=== PATIENT | female | born 1995 | race Caucasian/White ===

== ENCOUNTER 2018-09-12 21:55 | Emergency (ER) | payer OTHER ==
[~2018-09-12] VITALS: Ht 162.6 cm; Wt 56.7 kg
--- NOTE | 2018-09-12 22:12 | NUR ---
ED Nurse Note: Pt walked in Er and c/o R hip pain due to fall on wet floor 2 hours ago. Pt is AO x 4times, VSS, on room air no distress. Pain level 8/10. CHIRAGD seen pt at bedside.
[2018-09-12] MEDS ORDERED: Methocarbamol 750mg tab ORAL ONE (22:30)
--- NOTE | 2018-09-12 22:53 | NUR ---
ED Nurse Note: Urine sample collected and sent to Lab.
[2018-09-12] MEDS ORDERED: ROBAXIN-750750 MG PO (23:49)
[2018-09-12] MEDS ORDERED: IBUPROFEN600 MG ORAL (23:49)
[2018-09-13 00:01] VITALS: BP 118/76
--- NOTE | 2018-09-13 00:03 | NUR ---
ED Nurse Note: Pt cleared DC by GENA. Pt is AO x 4times, VSS, on room air no distress. ID band removed. DC and meds instructions given to Pt, Pt understood well. Provide cruthes and education for Pt and Pt understood well how to use it. Pt walked out with cruthes with boyfriend. Boyfriend will drive home.
--- NOTE | 2018-09-13 01:51 | Emergency Room Report ---
History of Present Illness General Chief Complaint: Lower Extremity Injury Source: Patient Present Illness HPI Patient presents with complaints of right hip pain radiating to the lower leg this happened after slipping and falling on the ground She reports that she feels the ground was wet causing the patient to slip Patient points to the right hip also to the upper leg knee and anterior tibial area for the discomfort Denies any loss of consciousness denies any chest pain denies any neck pain or photophobia Pain is 7 out of 10 patient has difficulty standing and bearing weight Allergies: Coded Allergies: No Known Allergies (Unverified , 09/12/18) Patient History Past Medical History: see triage record Pertinent Family History: none Last Menstrual Period: IRREGULAR Now: No - IUD Reviewed Nursing Documentation: PMH: Agreed; PSxH: Agreed Nursing Documentation-PMH Past Medical History: No Stated History Review of Systems All Other Systems: negative except mentioned in HPI Physical Exam Vital Signs Date Time Temp Pulse Resp B/P (MAP) Pulse Ox O2 Delivery O2 Flow Rate FiO2 09/12/18 22:03 98.2 84 18 123/74 100 Room Air Sp02 EP Interpretation: reviewed, normal General Appearance: well appearing, no apparent distress Head: normocephalic, atraumatic Eyes: bilateral eye PERRL, bilateral eye EOMI ENT: hearing grossly normal, normal pharynx Neck: supple Respiratory: lungs clear, no retraction, no accessory muscle use Cardiovascular #1: regular rate, rhythm Gastrointestinal: non tender, soft Musculoskeletal: other - Discomfort on palpation of the right hip, patient has pain trying to flex at the knee on the upper quadriceps, sensory intact no ecchymosis or bruising Neurologic: alert, oriented x3 Skin: normal color, no rash Lymphatic: no adenopathy Medical Decision Making Diagnostic Impression: Primary Impression: contusion Additional Impression: muscle strain ER Course Multiple differentials entertained given the fall and the type of trauma likely musculoskeletal sprain/strain however given the discomfort x-ray imaging was obtained there is no obvious acute fracture Patient provided with pain medication here given the difficulty bearing weight and ambulating was provided with crutches And is stable for initial conservative outpatient trial Other X-Ray Diagnostic Results Other X-Ray Diagnostic Results : X-Ray ordered: Right hip # of Views/Limited Vs Complete: 3 View Indication: Pain EP Interpretation: Yes Interpretation: no dislocation, no soft tissue swelling, no fractures Impression: No acute disease Electronically Signed by: Rohan Brooks DO Last Vital Signs Date Time Temp Pulse Resp B/P (MAP) Pulse Ox O2 Delivery O2 Flow Rate FiO2 09/13/18 00:01 98.1 72 18 118/76 100 Room Air Status: improved Disposition: HOME, SELF-CARE Condition: Improved Scripts Methocarbamol* (ROBAXIN-750*) 750 Mg Tablet 750 MG PO TID, #21 TAB 0 Refills Prov: Rohan Brooks DO 09/12/18 Ibuprofen* (MOTRIN*) 600 Mg Tablet 600 MG ORAL Q8H PRN for For Pain, #20 TAB 0 Refills Prov: Rohan Brooks DO 09/12/18 Referrals: [facility],REFERRING (PCP) Patient Instructions: Muscle Strain, [id number], Contusion, [id number] Additional Instructions: Patient is provided with the discharge instructions notified to follow up with primary doctor in the next 2-3 days otherwise return to the er with any worsening symptoms. Please note that this report is being documented using [employer] technology. This can lead to erroneous entry secondary to incorrect interpretation by the dictating instrument. Rohan Brooks DO Sep 13, 2018 01:51
== END 2018-09-13 00:08 | disposition home or self-care (01) ==
LOC: EMR 22:27
DX: S70.01XA Contusion of right hip, initial encounter (principal); S76.011A Strain of muscle, fascia and tendon of right hip, initial encounter; Y92.009 Unspecified place in unspecified non-institutional (private) residence as the place of occurrence of the external cause; W01.0XXA Fall on same level from slipping, tripping and stumbling without subsequent striking against object, initial encounter
CPT/HCPCS: 81025; 99283

== ENCOUNTER 2018-09-16 11:32 | Emergency (ER) | payer OTHER ==
[~2018-09-16] VITALS: Ht 162.6 cm; Wt 56.7 kg
[~2018-09-16 11:32] MED LIST: IBUPROFEN600 MG ORAL; ROBAXIN-750750 MG PO
[2018-09-16] MEDS ORDERED: NEURONTIN300 MG ORAL (11:38)
[2018-09-16] MEDS ORDERED: LAMICTAL200 MG ORAL (11:38)
[2018-09-16] MEDS ORDERED: IBUPROFEN600 MG ORAL (11:38)
--- NOTE | 2018-09-16 11:40 | NUR ---
ED Nurse Note: patient walked into ED from home c/o ambulated in to ER from home due to pink left eye since this morning.
[2018-09-16] MEDS ORDERED: LAMICTAL150 MG ORAL (11:48)
[2018-09-16] MEDS ORDERED: GENTAK5 ML LEFT EYE (11:48)
--- NOTE | 2018-09-16 11:54 | NUR ---
ED Nurse Note: pt was cleared for discharge by ERMD, discharge instrcution/paper/prescription explained and patient verbalized understanding. ID band removed. pt aox4. pt able to walk with steady gait. pt left the ed with all belongings.
[2018-09-16 11:55] VITALS: BP 117/70
[2018-09-16 11:57] VITALS: BP 117/70
--- NOTE | 2018-09-16 16:49 | Emergency Room Report ---
History of Present Illness General Chief Complaint: Eye Problems Source: Patient Present Illness HPI Patient presents emergency department today complaining of left eye redness. Patient states that she has discharge in her left eye. She denies any pain fever runny nose cough or visual changes. She denies any chest pain shortness of breath. Symptoms noted to be mild/moderate. Patient also complains of having history of bipolar disorder states that she is out of her left Lacmictal and is requesting a refill. She denies any suicidal homicidal ideation no auditory or visual hallucinations.No other modifying factors. No other associated signs and symptoms. No other complaints were noted. Allergies: Coded Allergies: No Known Allergies (Unverified , 09/16/18) Patient History Past Medical History: psych hx Past Surgical History: none Pertinent Family History: none Social History: Denies: smoking, alcohol use, drug use Last Menstrual Period: Aug 2018 Reviewed Nursing Documentation: PMH: Agreed; PSxH: Agreed Nursing Documentation-PMH Past Medical History: No Stated History Review of Systems All Other Systems: negative except mentioned in HPI Physical Exam Vital Signs Date Time Temp Pulse Resp B/P (MAP) Pulse Ox O2 Delivery O2 Flow Rate FiO2 09/16/18 11:35 98.6 100 16 117/70 97 Room Air Sp02 EP Interpretation: reviewed, normal General Appearance: normal inspection, well appearing, no apparent distress, alert Head: atraumatic Eyes: left eye Scleral Injection; bilateral eye PERRL, bilateral eye fluoroscene uptake, bilateral eye visual acuity ENT: normal ENT inspection, hearing grossly normal, normal voice Neck: normal inspection, full range of motion, supple, no bony tend Respiratory: normal inspection, lungs clear, normal breath sounds, no respiratory distress, no retraction, no wheezing Cardiovascular #1: regular rate, rhythm, no edema Gastrointestinal: normal inspection, normal bowel sounds, non tender, soft, no guarding, no hernia Genitourinary: no CVA tenderness Musculoskeletal: normal inspection, back normal, normal range of motion Neurologic: normal inspection, alert, responsive, speech normal Psychiatric: normal inspection, judgement/insight normal, mood/affect normal Skin: normal inspection, normal color, no rash Medical Decision Making Diagnostic Impression: Primary Impression: Medication refill Additional Impression: Conjunctivitis ER Course Patient presents emergency department today complaining of injected left eye. Differential considerations include glaucoma, conjunctivitis, foreign body. Patient's exam consistent with conjunctivitis. In addition patient requires medication refill we'll give patient a medication refill. Recommend close outpatient follow-up.Patient is advised to follow up with primary doctor in 2-3 days and return the emergency room for any worsening symptoms and as needed. Patient will be given eyedrops antibiotics in the left eye. Last Vital Signs Date Time Temp Pulse Resp B/P (MAP) Pulse Ox O2 Delivery O2 Flow Rate FiO2 09/16/18 11:57 98.6 100 16 117/70 97 Room Air Status: unchanged Disposition: HOME, SELF-CARE Condition: Stable Scripts Lamotrigine* (LAMICTAL*) 150 Mg Tablet 150 MG ORAL TWICE A DAY, #60 TAB 0 Refills Prov: Stephen Harmon MD 09/16/18 Gentamicin Sulfate* (GENTAK*) 5 Ml Drops 1 DROP LEFT EYE Q4H for 7 Days, #1 DROP 0 Refills Prov: Stephen Harmon MD 09/16/18 Referrals: [facility],REFERRING (PCP) [facility] Patient Instructions: Bacterial Conjunctivitis, [id number]-vs-[id number] Stephen Harmon MD Sep 16, 2018 16:49
== END 2018-09-16 11:54 | disposition home or self-care (01) ==
LOC: EMR 11:45
DX: Z76.0 Encounter for issue of repeat prescription (principal); F31.9 Bipolar disorder, unspecified; H10.9 Unspecified conjunctivitis
CPT/HCPCS: 99282

== ENCOUNTER 2018-10-09 19:33 | Emergency (ER) | payer OTHER ==
[~2018-10-09] VITALS: Ht 162.6 cm; Wt 65.8 kg
[~2018-10-09 19:33] MED LIST changes: +GENTAK5 ML LEFT EYE; +LAMICTAL150 MG ORAL; +LAMICTAL200 MG ORAL; +NEURONTIN300 MG ORAL
--- NOTE | 2018-10-09 20:06 | NUR ---
Patient has flu like symptoms since saturday. Patient reports general pain 02/25.
[2018-10-09 20:07] VITALS: BP 109/65
--- NOTE | 2018-10-09 20:08 | Emergency Room Report ---
History of Present Illness General Chief Complaint: Flu Like Symptoms Source: Patient Present Illness HPI 23-year-old female presents to the emergency department complaining of 10 out of 10 in severity bodyaches, chills, fevers, sore throat, nasal congestion and increased fatigue 2 days. Patient reports rather sudden onset of her symptoms all at once. Patient denies abdominal pain/abdominal tenderness, nausea/ vomiting, neck pain/stiffness, sudden severe headache or photophobia. She states that she has never received a flu vaccination. She denies ill contacts with similar symptoms she denies recent travel and denies shortness of breath. Denies ear pain. Denies Cp, Palpitations, LOC, AMS, seizures, paresthesias, or changes in Hearing or vision. Denies hx of smoking, asthma or COPD. Allergies: Coded Allergies: No Known Allergies (Unverified , 09/16/18) Patient History Past Medical History: see triage record Past Surgical History: none Pertinent Family History: none Last Menstrual Period: Sep 21 2018 Now: No Reviewed Nursing Documentation: PMH: Agreed; PSxH: Agreed Nursing Documentation-PMH Past Medical History: No Stated History Review of Systems All Other Systems: negative except mentioned in HPI Physical Exam Vital Signs Date Time Temp Pulse Resp B/P (MAP) Pulse Ox O2 Delivery O2 Flow Rate FiO2 10/09/18 19:49 99.5 110 20 109/65 97 Room Air Sp02 EP Interpretation: reviewed, normal General Appearance: no apparent distress, alert, GCS 15, non-toxic, lethargic Head: normocephalic, atraumatic Eyes: bilateral eye normal inspection, bilateral eye PERRL ENT: hearing grossly normal, normal voice, TMs + canals normal, uvula midline, moist mucus membranes, nasal congestion, pharyngeal erythema Neck: full range of motion, no meningismus Respiratory: chest non-tender, lungs clear, normal breath sounds, no respiratory distress, no wheezing, speaking full sentences Cardiovascular #1: regular rate, rhythm Musculoskeletal: back normal, gait/station normal, normal range of motion, non- tender Neurologic: alert, oriented x3, responsive, motor strength/tone normal, sensory intact, speech normal, grossly normal Psychiatric: judgement/insight normal Skin: normal color, no rash, warm/dry, well hydrated Lymphatic: no adenopathy Medical Decision Making PA Attestation Dr. Massey is my supervising Physician whom patient management has been discussed with. Diagnostic Impression: Primary Impression: Acute viral syndrome ER Course 23-year-old female presents to the emergency department complaining of 10 out of 10 in severity bodyaches, chills, fevers, sore throat, nasal congestion and increased fatigue 2 days. Patient reports rather sudden onset of her symptoms all at once. Patient denies abdominal pain/abdominal tenderness, nausea/ vomiting, neck pain/stiffness, sudden severe headache or photophobia. She states that she has never received a flu vaccination. She denies ill contacts with similar symptoms she denies recent travel and denies shortness of breath. Denies ear pain. Denies Cp, Palpitations, LOC, AMS, seizures, paresthesias, or changes in Hearing or vision. Denies hx of smoking, asthma or COPD. Ddx considered but are not limited to URI, pneumonia, PE, strep pharyngitis, meningitis, influenza, OM/OE just to name a few. Vital signs: Pt. is afebrile, the remaining VS are WNL H&PE are most consistent with Viral Syndrome suspicious for Influenza will treat clinically - no meningeal signs, Lungs are clear and oropharynx is not involved, no evidence of bacterial infection at this time. ORDERS: none required at this time, the diagnosis is clinical ED INTERVENTIONS: None required at this time. --PT. EDUCATION: --I discussed with this patient that I will be prescribing Tamiflu which is an antiviral. This medication is not always covered by insurance and is not always available at pharmacies. I educated patient that this medication has been shown to reduce symptoms by 1 day, and if unable to obtain there is no alternative, and to continue conservative treatment. DISCHARGE: At this time pt. is stable for d/c to home. Will provide printed patient care instructions, and any necessary prescriptions. Care plan and follow up instructions have been discussed with the patient prior to discharge. Last Vital Signs Date Time Temp Pulse Resp B/P (MAP) Pulse Ox O2 Delivery O2 Flow Rate FiO2 10/09/18 19:49 99.5 110 20 109/65 97 Room Air Disposition: HOME, SELF-CARE Condition: Stable Scripts D-Methorphan Hb/Prometh Hcl* (PROMETHAZINE-DM SYRUP*) 118 Ml Syrup 5 ML ORAL Q6H PRN for For Cough, #120 ML 0 Refills Prov: Sasha Perdomo 10/09/18 Naproxen* (NAPROXEN*) 500 Mg Tablet.dr 500 MG ORAL TWICE A DAY for 10 Days, #20 TAB Prov: Sasha Perdomo 10/09/18 Acetaminophen* (TYLENOL EXTRA STRENGTH*) 500 Mg Tablet 500 MG ORAL Q6H PRN for Mild Pain/Temp > 100.5, #30 TAB 0 Refills Prov: Sasha Perdomo 10/09/18 Oseltamivir Phosphate (Tamiflu) 75 Mg Capsule 75 MG ORAL TWICE A DAY for 5 Days, #10 CAP Prov: Sasha Perdomo 10/09/18 Patient Instructions: Influenza, Adult, [id number] Additional Instructions: Take medications as directed. Follow up with a Primary Care Provider in 3-5 days, even if your symptoms have resolved. --Please review list of primary care clinics, if you do not already have a primary care provider Return sooner to ED if new symptoms occur, or current symptoms become worse. Do not drink alcohol, drive, or operate heavy machinery while taking Cough Syrup as this may cause drowsiness. - Please note that this Emergency Department Report was dictated using [employer] drilling engineer technology software, occasionally this can lead to erroneous entry secondary to interpretation by the dictation equipment. Sasha Perdomo Oct 09, 2018 20:08
--- NOTE | 2018-10-09 20:11 | NUR ---
ED Nurse Note: Patient tolerated medication well.
[2018-10-09] MEDS ORDERED: NAPROXEN500 M1 ORAL (20:12)
[2018-10-09] MEDS ORDERED: TAMIFLU75 MG ORAL (20:12)
[2018-10-09] MEDS ORDERED: TYLENOL EXTRA500 MG ORAL (20:12)
[2018-10-09] MEDS ORDERED: PROMETHAZINE-C118 M1 ORAL (20:12)
[2018-10-09] MEDS ORDERED: Oseltamivir 75mg cap ORAL ONE (20:15)
[2018-10-09] MEDS ORDERED: PROMETHAZINE-D118 ML ORAL (20:16)
[2018-10-09 20:36] VITALS: BP 109/65
--- NOTE | 2018-10-09 20:36 | NUR ---
ED Nurse Note: Patient discharged in stable condition, Verbalized understanding of discharge instructions, ID band removed. Departed with all belongings.
== END 2018-10-09 20:36 | disposition home or self-care (01) ==
LOC: EMR 20:05
DX: J11.1 Influenza due to unidentified influenza virus with other respiratory manifestations (principal)
CPT/HCPCS: 99282

== ENCOUNTER 2018-10-13 00:09 | Emergency (ER) | payer OTHER ==
[~2018-10-13] VITALS: Ht 162.6 cm; Wt 52.2 kg
[~2018-10-13 00:09] MED LIST changes: +NAPROXEN500 M1 ORAL; +PROMETHAZINE-C118 M1 ORAL; +PROMETHAZINE-D118 ML ORAL; +TAMIFLU75 MG ORAL; +TYLENOL EXTRA500 MG ORAL
[2018-10-13] MEDS ORDERED: BUPROPION XL300 MG ORAL (00:21)
[2018-10-13 00:30] VITALS: BP 113/72
--- NOTE | 2018-10-13 00:30 | NUR ---
ED Nurse Note: Received report. Pt from home, ambulatory, AAOx4, c/o bilateral flank pain 9/10 for a week. Pt denies n/v and diarrhea. Will carry out ER MD's orders and monitor.
--- NOTE | 2018-10-13 00:36 | Emergency Room Report ---
History of Present Illness General Chief Complaint: Abdominal Pain Source: Patient Present Illness HPI Is a 23-year-old female with no past medical history. She presents with chief complaint of right flank pain/kidney pain. Onset for about a week. She had some urinary frequency earlier and took [id number] medication for it. Now denies any dysuria or frequency. Pain is 9 out of 10. Worse with movement. No nausea no vomiting. No diarrhea. Denies any other complaint. Allergies: Coded Allergies: No Known Allergies (Unverified , 09/16/18) Patient History Past Medical History: see triage record, old chart reviewed Past Surgical History: other Pertinent Family History: none Social History: Reports: smoking Last Menstrual Period: sep 20, 2018 Now: No : 2 Para: 0 Immunizations: other Reviewed Nursing Documentation: PMH: Agreed; PSxH: Agreed Nursing Documentation-PMH Past Medical History: No Stated History History Of Psychiatric Problem: Yes - bipolar anxiety depression Review of Systems Eye: Denies: eye pain, blurred vision ENT: Denies: ear pain, nose congestion, throat swelling Respiratory: Denies: cough, shortness of breath Cardiovascular: Denies: chest pain, palpitations Gastrointestinal: Reports: abdominal pain; Denies: diarrhea, nausea, vomiting Musculoskeletal: Denies: back pain, joint pain Skin: Denies: rash Neurological: Denies: headache, numbness Endocrine: Denies: increased thirst, increased urine Hematologic/Lymphatic: Denies: easy bruising All Other Systems: negative except mentioned in HPI Physical Exam Vital Signs Date Time Temp Pulse Resp B/P (MAP) Pulse Ox O2 Delivery O2 Flow Rate FiO2 10/13/18 00:14 98.6 110 16 106/72 100 Room Air vitals with tachycardia Sp02 EP Interpretation: reviewed, normal General Appearance: well appearing, no apparent distress, alert Head: normocephalic, atraumatic Eyes: bilateral eye PERRL, bilateral eye EOMI ENT: hearing grossly normal, normal pharynx Neck: full range of motion, supple, no meningismus Respiratory: chest non-tender, lungs clear, normal breath sounds Cardiovascular #1: regular rate, rhythm, no murmur Gastrointestinal: normal bowel sounds, non tender, no mass, no organomegaly, no bruit, non-distended Genitourinary: CVA tenderness (R) Musculoskeletal: back normal, gait/station normal, normal range of motion Psychiatric: mood/affect normal Skin: warm/dry Medical Decision Making Diagnostic Impression: Primary Impression: Pyelonephritis ER Course She presents with right flank pain. Labs unremarkable. CT scan is negative for any stone. No evidence of acute abdomen. Pain is resolved. We'll discharge home with antibiotics for pyelonephritis. Dose of IV antibiotics given here. Lab Results Impression labs unremarkable Last Vital Signs Date Time Temp Pulse Resp B/P (MAP) Pulse Ox O2 Delivery O2 Flow Rate FiO2 10/13/18 00:14 98.6 110 16 106/72 100 Room Air Status: improved Disposition: HOME, SELF-CARE Condition: Stable Scripts Ibuprofen* (MOTRIN*) 600 Mg Tablet 600 MG ORAL THREE TIMES A DAY, #30 TAB 0 Refills Prov: Jared Flores MD 10/13/18 Cephalexin* (KEFLEX*) 500 Mg Capsule 500 MG ORAL TID, #30 CAP Prov: Jared Flores MD 10/13/18 Additional Instructions: Increase fluids. Follow-up with your doctor in 2-3 days for recheck. Return if symptom worsen. Jared Flores MD Oct 13, 2018 00:36
[2018-10-13] MEDS ORDERED: Ketorolac 30mg Inj IV ONE (00:45)
[2018-10-13 01:10] LABS: APPEARANCE,URINE CLEAR; BILIRUBIN, URINE NEGATIVE (NEGATIVE); COLOR,URINE PALE YELLOW; GLUCOSE, URINE (UA) NEGATIVE (NEGATIVE); KETONES,URINE NEGATIVE (NEGATIVE); LEUKOCYTE ESTERASE ,URINE 2+ (NEGATIVE); NITRITE,URINE NEGATIVE (NEGATIVE); PH,URINE 8 (4.5-8.0); PROTEIN,URINE NEGATIVE (NEGATIVE); UROBILINOGEN,URINE NORMAL MG/DL (0.0-1.0)
[2018-10-13] MEDS ORDERED: Morphine Sulfate 4mg/ml Inj (IV USE ONLY) IVP ONE (01:30)
[2018-10-13 01:33] LABS: BASOPHILS % (AUTO) 0.7 % (0.0-2.0); EOSINOPHILS % (AUTO) 0.9 % (0.0-3.0); HEMATOCRIT 35.9 % (37.0-47.0); HEMOGLOBIN 12.3 G/DL (12.0-16.0); LYMPHOCYTES % (AUTO) 19.6 % (20.0-45.0); MEAN CORPUSCULAR VOLUME 87 FL (80-99); MONOCYTES % (AUTO) 9.9 % (1.0-10.0); NEUTROPHILS % (AUTO) 68.9 % (45.0-75.0); PLATELET COUNT 262 K/UL (150-450); RED BLOOD COUNT 4.12 M/UL (4.20-5.40); RED CELL DISTRIBUTION WIDTH 10.9 % (11.6-14.8)
[2018-10-13 01:35] LABS: ANION GAP 8 mmol/L (5-15); BLOOD UREA NITROGEN 8 mg/dL (7-18); CALCIUM 9.4 MG/DL (8.5-10.1); CARBON DIOXIDE 31 MMOL/L (21-32); CHLORIDE 103 MMOL/L (98-107); CREATININE 0.7 MG/DL (0.55-1.30); POTASSIUM 3.5 MMOL/L (3.5-5.1); SODIUM 142 MMOL/L (136-145)
[2018-10-13] MEDS ORDERED: IBUPROFEN600 MG ORAL (02:08)
[2018-10-13] MEDS ORDERED: CEPHALEXIN500 MG ORAL (02:08)
[2018-10-13] MEDS ORDERED: cefTRIAXone 1 GM in NS 55 ML IVPB ONE (02:15)
[2018-10-13 02:21] VITALS: BP 114/69
--- NOTE | 2018-10-13 10:12 | Diagnostic Imaging Report ---
Indication: Abdominal pain Technique: Continuous helical transaxial imaging of the abdomen and pelvis was obtained from the lung bases to the pubic symphysis. No intravenous contrast was administered. Coronal 2-D reformats were also obtained. Automatic Exposure Control was utilized. Total Dose length Product (DLP): [address] Dose Index Volume (CTDIvol): 0.55, 0.15 mGy Comparison: none Findings: Lung bases are clear. The study is significantly limited by the nonadministration of IV and oral contrast. There is also very little intra-abdominal fat which further limits evaluation. There is no hydronephrosis or nephrolithiasis identified. The ureters are not seen. No obvious free fluid identified. An intrauterine device is present. The ovaries are demonstrated but not evaluated well. There is air in the appendix. IMPRESSION: No acute findings appreciated. Limited evaluation as described above IUD. [facility] has communicated the preliminary results to the Emergency Department. Their findings are largely concordant with this report. The CT scanner at [facility] is accredited by the [employer] and the scans are performed using dose optimization techniques as appropriate to a performed exam including Automatic Exposure control.
== END 2018-10-13 02:47 | disposition home or self-care (01) ==
LOC: EMR 00:37
DX: N12 Tubulo-interstitial nephritis, not specified as acute or chronic (principal); F31.9 Bipolar disorder, unspecified; F41.9 Anxiety disorder, unspecified
CPT/HCPCS: 36415; 74176; 80048; 81003; 81025; 85025; 87086; 87181; 96361; 96365; 96375; 99284; J0696; J1885; J2270

== ENCOUNTER 2018-11-27 11:41 | Emergency (ER) | payer OTHER ==
[~2018-11-27] VITALS: Ht 162.6 cm; Wt 50.8 kg
[~2018-11-27 11:41] MED LIST changes: +BUPROPION XL300 MG ORAL; +CEPHALEXIN500 MG ORAL
[2018-11-27 11:49] VITALS: BP 108/72
--- NOTE | 2018-11-27 11:53 | NUR ---
ED Nurse Note: patient walked into ED from home due to left pink eye patient reports that she noticed it since this morning. a/o x4, ambulatory, breathing unlabored and even.
[2018-11-27] MEDS ORDERED: OCUFLOX5 ML LEFT EYE (12:07)
--- NOTE | 2018-11-27 12:15 | NUR ---
ER DISCHARGE NOTE: Patient is cleared to be discharged per ERMD, pt is aox4, on room air, with stable vital signs. pt was given dc and prescription instructions, pt was able to verbalize understanding, pt id band removed without complications. pt is able to ambulate with steady gait. pt took all belongings.
[2018-11-27 12:20] VITALS: BP 108/72
--- NOTE | 2018-11-27 13:34 | Emergency Room Report ---
History of Present Illness General Chief Complaint: Eye Problems Source: Patient Present Illness HPI 23-year-old female presents ED for evaluation. Patient complaining of left eye irritation and discharge starting this morning. Denies photophobia or blurry vision. Denies fevers or chills. Denies sick contacts or recent travel. No other aggravating relieving factors. Denies any other associated symptoms Allergies: Coded Allergies: No Known Allergies (Unverified , 09/16/18) Patient History Past Medical History: none Past Surgical History: none Pertinent Family History: none Social History: Denies: smoking, alcohol use, drug use Last Menstrual Period: 10/26/18 Now: No Immunizations: UTD Reviewed Nursing Documentation: PMH: Agreed; PSxH: Agreed Nursing Documentation-PMH Past Medical History: No History, Except For Review of Systems All Other Systems: negative except mentioned in HPI Physical Exam Vital Signs Date Time Temp Pulse Resp B/P (MAP) Pulse Ox O2 Delivery O2 Flow Rate FiO2 11/27/18 11:49 97.9 99 18 108/72 96 Sp02 EP Interpretation: reviewed, normal General Appearance: no apparent distress, alert, GCS 15, non-toxic Head: normocephalic Eyes: left eye Scleral Injection; bilateral eye normal inspection, bilateral eye PERRL, bilateral eye EOMI ENT: hearing grossly normal, normal pharynx, no angioedema, normal voice Neck: full range of motion, supple/symm/no masses Respiratory: normal inspection Cardiovascular #1: normal inspection Gastrointestinal: normal inspection Rectal: deferred Genitourinary: no CVA tenderness Musculoskeletal: normal inspection Neurologic: alert, oriented x3, responsive, motor strength/tone normal, sensory intact, speech normal Psychiatric: normal inspection Skin: normal inspection Lymphatic: normal inspection Medical Decision Making Diagnostic Impression: Primary Impression: Conjunctivitis Qualified Codes: H10.31 - Unspecified acute conjunctivitis, right eye ER Course Hospital Course 23 yo F presents to ED c/o R eye discharge Differential diagnoses include: conjunctivitis, traumatic iritis, foreign body, corneal abrasion Clinical course Patient placed on stretcher. After initial history, physical exam revealed a female no acute distress. There is injected conjunctiva R eyes. Pupils equally reactive to light bilaterally. No evidence of foreign body. Clinical findings consistent with conjunctivitis. Discussed findings with patient. We'll discharge with Ocuflox. We'll provide PMD/Optho referrals. Safe for discharge close outpatient follow-up Diagnosis - conjunctivitis Stable and discharged to home with prescription for Ocuflox. Followup with PMD/ Optho. Return to ED if symptoms recur or worsen Last Vital Signs Date Time Temp Pulse Resp B/P (MAP) Pulse Ox O2 Delivery O2 Flow Rate FiO2 11/27/18 12:20 97.9 99 18 108/72 96 Status: improved Disposition: HOME, SELF-CARE Condition: Stable Scripts Ofloxacin (OCUFLOX) 5 Ml Drops 1 DROP LEFT EYE QID for 7 Days, ML Prov: Meliton Varner MD 11/27/18 Referrals: Dennis Kaufman M.D., MD [facility] Patient Instructions: Bacterial Conjunctivitis, Kuka-tz-Spux Meliton Varner MD Nov 27, 2018 13:34
== END 2018-11-27 12:15 | disposition home or self-care (01) ==
LOC: EMR 12:05
DX: H10.89 Other conjunctivitis (principal)
CPT/HCPCS: 99282

== ENCOUNTER 2019-03-22 23:41 | Emergency (ER) | payer OTHER ==
[~2019-03-22] VITALS: Ht 162.6 cm; Wt 49.9 kg
[~2019-03-22 23:41] MED LIST changes: +OCUFLOX5 ML LEFT EYE
[2019-03-22 23:50] VITALS: BP 110/74
[2019-03-22] MEDS ORDERED: LAMICTAL25 M1 PO (23:51)
[2019-03-22] MEDS ORDERED: BUSPAR10 MG ORAL (23:51)
--- NOTE | 2019-03-22 23:53 | NUR ---
ED Nurse Note: pt walked in to ED stating she has a ear plug stuck in her left ear and is unable to take it out. pt verbalizes that she can not hear in her left ear also. sounds are muffled. pt is alert x4. VSS
--- NOTE | 2019-03-23 00:07 | Emergency Room Report ---
History of Present Illness General Chief Complaint: Earache Source: Patient Present Illness HPI Is a 23-year-old female with no past medical history. She presents with a foreign body in her left ear. She used X to help her sleep. When try to take it out a piece of it is still in there. No other injury. No pain. Decreased hearing because of it. Allergies: Coded Allergies: No Known Allergies (Unverified , 09/16/18) Patient History Past Medical History: see triage record, old chart reviewed Past Surgical History: none Pertinent Family History: none Social History: Denies: smoking Last Menstrual Period: Two weeks ago Now: No Immunizations: other Reviewed Nursing Documentation: PMH: Agreed; PSxH: Agreed Nursing Documentation-PMH Past Medical History: No Stated History Review of Systems Eye: Denies: eye pain, blurred vision ENT: Denies: ear pain, nose congestion, throat swelling Respiratory: Denies: cough, shortness of breath Cardiovascular: Denies: chest pain, palpitations Gastrointestinal: Denies: abdominal pain, diarrhea, nausea, vomiting Musculoskeletal: Denies: back pain, joint pain Skin: Denies: rash Neurological: Denies: headache, numbness Endocrine: Denies: increased thirst, increased urine Hematologic/Lymphatic: Denies: easy bruising All Other Systems: negative except mentioned in HPI Physical Exam Vital Signs Date Time Temp Pulse Resp B/P (MAP) Pulse Ox O2 Delivery O2 Flow Rate FiO2 03/22/19 23:46 98.4 81 16 112/73 (86) 96 Room Air Vitals normal Sp02 EP Interpretation: reviewed, normal General Appearance: well appearing, no apparent distress, alert Head: normocephalic, atraumatic Eyes: bilateral eye PERRL, bilateral eye EOMI ENT: hearing grossly normal, normal pharynx, other - A clear waxy foreign body left ear canal Neck: full range of motion, supple, no meningismus Respiratory: chest non-tender, lungs clear, normal breath sounds Cardiovascular #1: regular rate, rhythm, no murmur Gastrointestinal: normal bowel sounds, non tender, no mass, no organomegaly, no bruit, non-distended Musculoskeletal: back normal, gait/station normal, normal range of motion Psychiatric: mood/affect normal Procedures Additional Procedure Procedure Narrative Procedure: Foreign body removal Indication: Foreign body Description: I irrigated the left ear with normal saline. Foreign body removed without any difficulty. Patient tolerated procedure without any problem. No trauma on reexamination. Medical Decision Making Diagnostic Impression: Primary Impression: Foreign body in left ear Qualified Codes: T16.2XXA - Foreign body in left ear, initial encounter ER Course This patient presents with a foreign body in her left ear. Removed after irrigation. Will discharge home. Last Vital Signs Date Time Temp Pulse Resp B/P (MAP) Pulse Ox O2 Delivery O2 Flow Rate FiO2 03/22/19 23:50 98.4 76 16 110/74 98 Room Air Status: improved Disposition: HOME, SELF-CARE Condition: Stable Referrals: [facility],REFERRING (PCP) Additional Instructions: Follow up your doctor in 7 days. Return if worse. Jared Flores MD Mar 23, 2019 00:07
[2019-03-23 00:09] VITALS: BP 110/76
--- NOTE | 2019-03-23 00:09 | NUR ---
ER DISCHARGE NOTE: Patient is cleared to be discharged per ERMD, pt is aox4, on room air, with stable vital signs. pt was given dc instructions, pt was able to verbalize understanding, pt id band removed without complications. pt is able to ambulate with steady gait. pt took all belongings.
== END 2019-03-23 00:09 | disposition home or self-care (01) ==
LOC: EMR 23:59
DX: T16.2XXA Foreign body in left ear, initial encounter (principal); X58.XXXA Exposure to other specified factors, initial encounter; Y92.009 Unspecified place in unspecified non-institutional (private) residence as the place of occurrence of the external cause
CPT/HCPCS: 99282; Z7502

== ENCOUNTER 2019-05-26 11:23 | Emergency (ER) | payer OTHER ==
[~2019-05-26] VITALS: Ht 162.6 cm; Wt 49.9 kg
[~2019-05-26 11:23] MED LIST changes: +BUSPAR10 MG ORAL; +LAMICTAL25 M1 PO
[2019-05-26] MEDS ORDERED: LUNESTA2 MG ORAL (11:33)
[2019-05-26] MEDS ORDERED: AUGMENTIN 875-1 EAC1 ORAL (11:53)
--- NOTE | 2019-05-26 11:53 | Emergency Room Report ---
History of Present Illness General Chief Complaint: Eye Problems Source: Patient Present Illness HPI 23-year-old female presents with swelling of the left eyelid, redness around it , discharge and pus, no fever no chills no changes in vision, no pain with eye movement has been occurring for 3 days, patient has been using warm compresses which has helped, no aggravating factors severity is mild, constant, patient presents for evaluation. Allergies: Coded Allergies: No Known Allergies (Unverified , 09/16/18) Patient History Past Medical History: see triage record Social History: Reports: smoking Last Menstrual Period: IUD Reviewed Nursing Documentation: PMH: Agreed; PSxH: Agreed Nursing Documentation-PMH Past Medical History: No History, Except For Hx Cardiac Problems: No Hx Hypertension: No Hx Pacemaker: No Hx Asthma: No Hx COPD: No Hx Diabetes: No Hx Cancer: No Hx Gastrointestinal Problems: No Hx Dialysis: No History Of Psychiatric Problem: Yes - Depression, anxiety Hx Neurological Problems: No Hx Cerebrovascular Accident: No Hx Seizures: No Review of Systems All Other Systems: negative except mentioned in HPI Physical Exam Vital Signs Date Time Temp Pulse Resp B/P (MAP) Pulse Ox O2 Delivery O2 Flow Rate FiO2 05/26/19 11:28 98.1 94 16 102/66 (78) 99 Room Air General Appearance: well appearing, no apparent distress Head: normocephalic, atraumatic Eyes: left eye lid inflammation - Patient with swelling of the left eyelid, crusting, with mild surrounding erythema; bilateral eye PERRL, bilateral eye EOMI ENT: hearing grossly normal, normal voice Neck: full range of motion, supple Respiratory: no respiratory distress, speaking full sentences Neurologic: alert, normal gait Psychiatric: mood/affect normal Skin: no rash Medical Decision Making Diagnostic Impression: Primary Impression: Preseptal cellulitis of left upper eyelid ER Course 23-year-old female with preseptal cellulitis of the left eye, no pain with movement of eye, vision intact counseled patient to follow-up with ophthalmology, will start antibiotics disposition home with return precautions Last Vital Signs Date Time Temp Pulse Resp B/P (MAP) Pulse Ox O2 Delivery O2 Flow Rate FiO2 05/26/19 11:28 98.1 94 16 102/66 (78) 99 Room Air Disposition: HOME, SELF-CARE Condition: Stable Scripts Amoxicillin/Potassium Clav 875-125* (AUGMENTIN 875-125 TABLET*) 1 Each Tablet 1 TAB ORAL TWICE A DAY, #20 TAB Prov: Sloan Abbasi MD 05/26/19 Referrals: Dennis Kaufman M.D., MD [facility]. [facility] Patient Instructions: Preseptal Cellulitis, Adult Additional Instructions: The patient was provided with discharge instructions, notified to follow-up with a primary care doctor and or specialist in the next 24-48 hours, and to return to the ED if they have worsening of their symptoms. Please note that this report is being documented using DRAGON technology. This can lead to erroneous entry secondary to incorrect interpretation by the dictating instrument. Sloan Abbasi MD May 26, 2019 11:53
--- NOTE | 2019-05-26 11:57 | NUR ---
ED Nurse Note: pt relates irritation and swelling with green crusting over x 3 days. no new makeup or lotions to area. pt states is painful.
[2019-05-26 11:58] VITALS: BP 102/66
--- NOTE | 2019-05-26 12:10 | NUR ---
ER DISCHARGE NOTE: Patient is cleared to be discharged per ERMD, pt is aox4, on room air, with stable vital signs. pt was given dc and prescription instructions, pt was able to verbalize understanding, pt id band removed. pt is able to ambulate with steady gait. pt took all belongings.
== END 2019-05-26 12:10 | disposition home or self-care (01) ==
LOC: EMR 12:10
DX: L03.213 Periorbital cellulitis (principal); F32.9 Major depressive disorder, single episode, unspecified; F41.9 Anxiety disorder, unspecified; F17.200 Nicotine dependence, unspecified, uncomplicated
CPT/HCPCS: 99282

== ENCOUNTER 2019-06-11 17:27 | Emergency (ER) | payer OTHER ==
[~2019-06-11] VITALS: Ht 162.6 cm; Wt 48.5 kg
[~2019-06-11 17:27] MED LIST changes: +AUGMENTIN 875-1 EAC1 ORAL; +LUNESTA2 MG ORAL
--- NOTE | 2019-06-11 17:43 | Emergency Room Report ---
History of Present Illness General Chief Complaint: Eye Problems Source: Medical Record Present Illness HPI 23-year-old female with no significant past medical history here complaining of pain and rotation left thigh x2 days. Patient was previously seen here at [facility] few weeks ago for periorbital cellulitis however reports that this time she came in sooner as it is not appears to be painful. However he wants treatment. Patient has not had a chance to follow-up with sales floor team member as patient has [employer] and has not been able to get a referral yet from her primary care physician. Denies photophobia, blurry vision, pruritus, URI symptoms. Has not taken medication for symptom relief. Patient denies wearing eye make-up. Allergies: Coded Allergies: No Known Allergies (Unverified , 09/16/18) Patient History Past Medical History: see triage record Past Surgical History: unable to obtain Pertinent Family History: none Last Menstrual Period: IUD Now: No Immunizations: UTD Reviewed Nursing Documentation: PMH: Agreed; PSxH: Agreed Nursing Documentation-PMH Past Medical History: No History, Except For Hx Cardiac Problems: No Hx Hypertension: No Hx Pacemaker: No Hx Asthma: No Hx COPD: No Hx Diabetes: No Hx Cancer: No Hx Gastrointestinal Problems: No Hx Dialysis: No Hx Neurological Problems: No Hx Cerebrovascular Accident: No Hx Seizures: No Review of Systems All Other Systems: negative except mentioned in HPI Physical Exam Vital Signs Date Time Temp Pulse Resp B/P (MAP) Pulse Ox O2 Delivery O2 Flow Rate FiO2 06/11/19 17:32 98.8 92 18 115/75 (88) 95 Room Air Sp02 EP Interpretation: reviewed, normal General Appearance: no apparent distress, alert, GCS 15, non-toxic Head: normocephalic, atraumatic Eyes: left eye Scleral Injection ENT: hearing grossly normal, normal pharynx, no angioedema, normal voice Neck: full range of motion, supple, supple/symm/no masses Respiratory: chest non-tender, lungs clear, normal breath sounds, no wheezing, speaking full sentences Cardiovascular #1: regular rate, rhythm, no edema, no JVD, no murmur Gastrointestinal: normal bowel sounds, non tender, soft, non-distended, no guarding, no rebound Genitourinary: no CVA tenderness Musculoskeletal: back normal, gait/station normal, normal range of motion, non- tender Neurologic: alert, oriented x3, responsive, motor strength/tone normal, sensory intact, speech normal Psychiatric: judgement/insight normal, memory normal, mood/affect normal, no suicidal/homicidal ideation Skin: no rash Lymphatic: no adenopathy Medical Decision Making POORNIMA Attestation All diagnoses and treatment plans were reviewed and discussed with my supervising physician Dr. Astorga Diagnostic Impression: Primary Impression: Bacterial conjunctivitis ER Course 23-year-old female with no significant past medical history here complaining of pain and rotation left thigh x2 days. Patient was previously seen here at [place] [facility] few weeks ago for periorbital cellulitis however reports that this time she came in sooner as it is not appears to be painful. However he wants treatment. Patient has not had a chance to follow-up with sales floor team member as patient has [employer]i-[employer] and has not been able to get a referral yet from her primary care physician. Denies photophobia, blurry vision, pruritus, URI symptoms. Has not taken medication for symptom relief. Patient denies wearing eye make-up. Ddx considered but are not limited to: bacterial conjunctivitis, allergic conjunctivitis, viral conjunctivitis, periorbital cellulitis, global trauma Vital signs: are WNL, pt. is afebrile H&PE are most consistent with: Bacterial conjunctivitis ORDERS: Ofloxacin ophthalmic ED INTERVENTIONS: None required at this time. DISCHARGE: At this time pt. is stable for d/c to home. Will provide printed patient care instructions, and any necessary prescriptions. Care plan and follow up instructions have been discussed with the patient prior to discharge. Advised patient to follow-up with sales floor team member, avoid wearing eye make-up change s and avoid contamination. At this time there is no periorbital cellulitis noted. Last Vital Signs Date Time Temp Pulse Resp B/P (MAP) Pulse Ox O2 Delivery O2 Flow Rate FiO2 06/11/19 17:32 98.8 92 18 115/75 (88) 95 Room Air Disposition: HOME, SELF-CARE Condition: Stable Scripts Ofloxacin (Ofloxacin) 5 Ml Drops 2 DROP OP Q4HR for 5 Days, #5 ML Prov: Edgar Butterfield 06/11/19 Patient Instructions: Bacterial Conjunctivitis, [id number] Additional Instructions: Use drops as directed, avoid cross-contamination, avoid exposure to long hours of monitor exposure, wear prescription glasses. Follow-up with your primary care doctor for referral to an sales floor team member. Edgar Butterfield Jun 11, 2019 17:43
[2019-06-11] MEDS ORDERED: OFLOXACIN10 ML OP (17:44)
[2019-06-11 17:48] VITALS: BP 115/75
[2019-06-11 17:52] VITALS: BP 115/75
--- NOTE | 2019-06-11 17:53 | NUR ---
ER DISCHARGE NOTE: Patient is cleared to be discharged per ERMD, no nsg orders pt is aox4, on room air, with stable vital signs. pt was given dc and prescription instructions, pt was able to verbalize understanding, pt id band removed without complications. pt is able to ambulate with steady gait. pt took all belongings.
== END 2019-06-11 17:54 | disposition home or self-care (01) ==
LOC: EMR 17:42
DX: H10.9 Unspecified conjunctivitis (principal)
CPT/HCPCS: 99282

== ENCOUNTER 2019-11-11 14:21 | Emergency (ER) | payer OTHER ==
[~2019-11-11] VITALS: Ht 165.1 cm; Wt 50.8 kg
[~2019-11-11 14:21] MED LIST changes: +OFLOXACIN10 ML OP; +TINACTIN 1%1 APPLIC TOPIC; +VENLAFAXINE H37.5 MG ORAL; +VISTARIL25 M1 PO
[2019-11-11 14:44] VITALS: BP 102/66
--- NOTE | 2019-11-11 14:45 | NUR ---
ED Nurse Note: Pt ambulated to ED d/t vaginal odor with some yellowish discharge for 3-4 days ago. VSS, afebrile on triage. Pt denies any hx of having fever nor chills. Placed on bed.
--- NOTE | 2019-11-11 15:27 | Emergency Room Report ---
History of Present Illness General Chief Complaint: Vaginal Source: Patient Present Illness HPI 24-year-old female presents to the emergency department complaining of nonpainful malodorous vaginal discharge x3 days. Patient reports acute onset after having numerous episodes unprotected intercourse. Patient denies suspicion of STI. She denies suspicion of . Patient denies dysuria, hematuria or urinary frequency. Patient denies swollen tender lymph nodes, rashes or external genital lesions. She reports having a 2/10 in severity discomfort/burning feeling in the genital area. Allergies: Coded Allergies: No Known Allergies (Unverified , 09/16/18) COVID-19 Screening Contact w/high risk pt: No Recent Travel to affected area: No Experienced COVID-19 symptoms?: No Patient History Past Medical History: see triage record Past Surgical History: none Pertinent Family History: none Last Menstrual Period: 10/22/19 Now: No Reviewed Nursing Documentation: PMH: Agreed; PSxH: Agreed Nursing Documentation-PMH Past Medical History: No History, Except For Hx Cardiac Problems: No Hx Hypertension: No Hx Pacemaker: No Hx Asthma: No Hx COPD: No Hx Diabetes: No Hx Cancer: No Hx Gastrointestinal Problems: No Hx Dialysis: No Hx Neurological Problems: No Hx Cerebrovascular Accident: No Hx Seizures: No Review of Systems All Other Systems: negative except mentioned in HPI Physical Exam Vital Signs Date Time Temp Pulse Resp B/P (MAP) Pulse Ox O2 Delivery O2 Flow Rate FiO2 11/11/19 14:38 97.9 92 20 102/66 (78) 97 Room Air Sp02 EP Interpretation: reviewed, normal General Appearance: no apparent distress, alert, GCS 15, non-toxic Head: normocephalic, atraumatic Eyes: bilateral eye normal inspection, bilateral eye PERRL ENT: hearing grossly normal, normal voice Neck: full range of motion Respiratory: lungs clear, normal breath sounds, speaking full sentences Cardiovascular #1: regular rate, rhythm Gastrointestinal: normal bowel sounds, non tender, soft, non-distended, no guarding Genitourinary: normal inspection, no CVA tenderness, adnexa normal, bladder normal, cervix normal, other - thick opaque d/c in the vaginal vault. Musculoskeletal: back normal, normal range of motion, gait/station normal, non- tender Neurologic: alert, motor strength/tone normal, oriented x3, sensory intact, responsive, speech normal Psychiatric: judgement/insight normal Lymphatic: no adenopathy Medical Decision Making PA Attestation Dr. Varner is my supervising Physician whom patient management has been discussed with. Diagnostic Impression: Primary Impression: Vaginitis Qualified Codes: N76.0 - Acute vaginitis ER Course 24-year-old female presents to the emergency department complaining of nonpainful malodorous vaginal discharge x3 days. Patient reports acute onset after having numerous episodes unprotected intercourse. Patient denies suspicion of STI. She denies suspicion of . Patient denies dysuria, hematuria or urinary frequency. Patient denies swollen tender lymph nodes, rashes or external genital lesions. She reports having a 2/10 in severity discomfort/burning feeling in the genital area. Ddx considered but are not limited to UTi , Pyelo, STI, Stone, Cystitis, vaginal laceration, vaginitis. Vital signs: are WNL, pt. is afebrile H& PE are most consistent with: Vaginitis ORDERS: - UA labs are attached --Negative - [place] : few bacteria ED INTERVENTIONS: -Diflucan PO DISCHARGE: At this time pt. is stable for d/c to home. Will provide printed patient care instructions, and any necessary prescriptions. Care plan and follow up instructions have been discussed with the patient prior to discharge. discussed with the patient prior to discharge. Labs Test 11/11/19 14:54 Urine Color Pale yellow Urine Appearance Clear Urine pH 7 (4.5-8.0) Urine Specific [place] 1.005 (1.005-1.035) Urine Protein Negative (NEGATIVE) Urine Glucose (UA) Negative (NEGATIVE) Urine Ketones Negative (NEGATIVE) Urine Blood Negative (NEGATIVE) Urine Nitrite Negative (NEGATIVE) Urine Bilirubin Negative (NEGATIVE) Urine Urobilinogen Normal MG/DL (0.0-1.0) Urine Leukocyte Esterase Negative (NEGATIVE) Urine HCG, Qualitative Negative (NEGATIVE) Last Vital Signs Date Time Temp Pulse Resp B/P (MAP) Pulse Ox O2 Delivery O2 Flow Rate FiO2 11/11/19 14:44 97.9 20 102/66 97 Room Air 11/11/19 14:38 92 Disposition: HOME, SELF-CARE Condition: Stable Scripts Fluconazole (FLUCONAZOLE) 100 Mg Tablet 100 MG ORAL DAILY, #3 TAB 0 Refills Prov: Sasha Perdomo 11/11/19 Metronidazole* (FLAGYL*) 500 Mg Tablet 500 MG ORAL BID for 7 Days, #14 TAB Prov: Sasha Perdomo 11/11/19 Referrals: [facility]ERR[facility] (PCP) Patient Instructions: Vaginitis, [id number] Additional Instructions: Take medications as directed. Follow up with a GREASE WORKER within 3-5 days, even if your symptoms have resolved. Return sooner to ED if new symptoms occur, or current symptoms become worse. - Please note that this Emergency Department Report was dictated using [employer]ins[employer] machine operator technology software, occasionally this can lead to erroneous entry secondary to interpretation by the dictation equipment. Sasha Perdomo Nov 11, 2019 15:26
[2019-11-11 15:57] LABS: APPEARANCE,URINE CLEAR; BILIRUBIN, URINE NEGATIVE (NEGATIVE); COLOR,URINE PALE YELLOW; GLUCOSE, URINE (UA) NEGATIVE (NEGATIVE); KETONES,URINE NEGATIVE (NEGATIVE); LEUKOCYTE ESTERASE ,URINE NEGATIVE (NEGATIVE); NITRITE,URINE NEGATIVE (NEGATIVE); PH,URINE 7 (4.5-8.0); PROTEIN,URINE NEGATIVE (NEGATIVE); UROBILINOGEN,URINE NORMAL MG/DL (0.0-1.0)
[2019-11-11] MEDS ORDERED: METRONIDAZOLE500 MG ORAL (16:08)
[2019-11-11] MEDS ORDERED: FLUCONAZOLE100 MG ORAL (16:08)
[2019-11-11 16:13] VITALS: BP 110/68
== END 2019-11-11 16:13 | disposition home or self-care (01) ==
LOC: EMR 15:22
DX: N76.0 Acute vaginitis (principal)
CPT/HCPCS: 81003; 81025; 87210; Z7502; 99283

== ENCOUNTER 2020-03-05 15:04 | Emergency (ER) | payer OTHER ==
[~2020-03-05 15:04] MED LIST changes: +FLUCONAZOLE100 MG ORAL; +METRONIDAZOLE500 MG ORAL
[2020-03-05] MEDS ORDERED: HYDROcodone/Acetamin 5/325 tab ORAL ONE (15:45)
[2020-03-05] MEDS ORDERED: SILVADENE20 GM TP (16:42)
[2020-03-05] MEDS ORDERED: CEPHALEXIN500 MG ORAL (16:42)
[2020-03-05] MEDS ORDERED: NORCO 5-325 TA1 EAC1 ORAL (16:42)
== END 2020-03-05 16:53 | disposition home or self-care (01) ==
DX: T23.251A Burn of second degree of right palm, initial encounter (principal); X19.XXXA Contact with other heat and hot substances, initial encounter; Y92.9 Unspecified place or not applicable

== ENCOUNTER 2020-05-02 18:17 | Emergency (ER) | payer OTHER ==
[~2020-05-02] VITALS: Ht 162.6 cm; Wt 45.4 kg
[~2020-05-02 18:17] MED LIST changes: +NORCO 5-325 TA1 EAC1 ORAL; +SILVADENE20 GM TP
--- NOTE | 2020-05-02 18:33 | NUR ---
ED Nurse Note: pt presents to ED with R forearm swelling and cellulitis onset 4 days ago. pt reports that she used meth intravenously 4 days ago and first started noticing the swelling and pain 2 days after that. pt reports that she cannot put a shirt on over the arm and that any movement hurts the extremity. the skin is warm dry and intact but there appears to be significant sweling over the R forearm. radial pules palpable, cap refill <3 seconds, pt has decreased ROM of wrist and fingers on R hand. pt states she took advil without relief of pain. Addendum: 05/02/20 at 1839 by QLE The L arm is the affected arm
[2020-05-02 18:35] VITALS: BP 100/67
[2020-05-02] MEDS ORDERED: Bactrim-DS 1 tab ORAL ONE (19:00)
[2020-05-02] MEDS ORDERED: Cephalexin 500mg cap ORAL ONE (19:00)
--- NOTE | 2020-05-02 19:05 | Emergency Room Report ---
History of Present Illness General Chief Complaint: Skin Rash/Abscess Source: Patient Present Illness HPI 24 YO female presents to the ED c/o swelling, erythema, and 10/10 in severity pain and tenderness to the ST of the left forearm following IV drug use. Pt. reports symptoms have progressed over the course of 3 days. Pt. denies fevers or chills. Pt. reports She is up-to-date with vaccinations including tetanus. She denies taking anything for her pain. Pt. reports that any use of her left arm exacerbates her pain. She reports that she is right hand dominant. She denies paresthesias. She denies trauma or fall otherwise. Pt. denies open wound or discharge. Pt. reports symptoms are localized to the left forearm only. She denies or suspicion for . She reports LMP was last week on 04/23. Allergies: Coded Allergies: No Known Allergies (Unverified , 09/16/18) COVID-19 Screening Contact w/high risk pt: No Recent Travel to affected area: No Experienced COVID-19 symptoms?: No COVID-19 Testing performed PROFESSIONAL FIGHTER: No Patient History Past Medical History: see triage record Past Surgical History: none Pertinent Family History: none Last Menstrual Period: 04/23/20 Now: No Reviewed Nursing Documentation: PMH: Agreed; PSxH: Agreed Nursing Documentation-PMH Past Medical History: No Stated History Hx Cardiac Problems: No - hep c Hx Hypertension: No Hx Pacemaker: No Hx Asthma: No Hx COPD: No Hx Diabetes: No Hx Cancer: No Hx Gastrointestinal Problems: No Hx Dialysis: No Hx Neurological Problems: No Hx Cerebrovascular Accident: No Hx Seizures: No Review of Systems All Other Systems: negative except mentioned in HPI Physical Exam Vital Signs Date Time Temp Pulse Resp B/P (MAP) Pulse Ox O2 Delivery O2 Flow Rate FiO2 05/02/20 18:26 98.2 114 18 100/67 (78 98 Sp02 EP Interpretation: reviewed, normal General Appearance: no apparent distress, alert, GCS 15, non-toxic Head: normocephalic, atraumatic Eyes: bilateral eye normal inspection, bilateral eye PERRL ENT: hearing grossly normal, normal voice Neck: full range of motion Respiratory: lungs clear, normal breath sounds, speaking full sentences Cardiovascular #1: regular rate, rhythm, normal capillary refill Cardiovascular #2: 2+ radial (R), 2+ radial (L) Musculoskeletal: back normal, normal range of motion, gait/station normal, non- tender Neurologic: alert, motor strength/tone normal, oriented x3, sensory intact, responsive, speech normal Psychiatric: judgement/insight normal Skin: other - erythema, warmth that is 2.5cm in diameter surrounding a 1.5cm in diameter area of induration on the volar left wrist. There is no fluctuance, no blisters or vesicles, No visible DC. Lymphatic: no adenopathy Medical Decision Making PA Attestation Dr. Osorio is my supervising Physician whom patient management has been discussed with. Diagnostic Impression: Primary Impression: Cellulitis Qualified Codes: L03.114 - Cellulitis of left upper limb Additional Impression: Intravenous drug user ER Course 24 YO female presents to the ED c/o swelling, erythema, and 10/10 in severity pain and tenderness to the ST of the left forearm following IV drug use. Pt. reports symptoms have progressed over the course of 3 days. Pt. denies fevers or chills. Pt. reports She is up-to-date with vaccinations including tetanus. She denies taking anything for her pain. Pt. reports that any use of her left arm exacerbates her pain. She reports that she is right hand dominant. She denies paresthesias. She denies trauma or fall otherwise. Pt. denies open wound or discharge. Pt. reports symptoms are localized to the left forearm only. She denies or suspicion for . She reports LMP was last week on 04/23. Ddx considered but are not limited to cellulitis, Necrotizing fasciitis, allergic reaction, burn, dermatitis, fracture, d/L, gout, paronichia, eponichia, ingrown toe nail, Vital signs: PT. is tachycardic, remaining VS are WNL, pt. is afebrile H&PE are most consistent with moderate cellulitis of the left forearm. No evidence of streaking/lymphangitis. No palpable fluctuance. induration of the left forearm. There is no swelling of the hand or fingers. ORDERS: none required at this time, the diagnosis is clinical ED INTERVENTIONS: -Bactrim DS PO -Keflex PO D/w pt. The importance of having a 48 hour wound check follow up by returning here to the ED. Pt. is given strict ED return precautions otherwise. DISCHARGE: At this time pt. is stable for d/c to home. Will provide printed patient care instructions, and any necessary prescriptions. Care plan and follow up instructions have been discussed with the patient prior to discharge. Last Vital Signs Date Time Temp Pulse Resp B/P (MAP) Pulse Ox O2 Delivery O2 Flow Rate FiO2 05/02/20 18:35 98.2 87 18 100/67 98 Disposition: HOME, SELF-CARE Condition: Stable Scripts Trimethoprim/Sulfamethoxazole 160/800* (BACTRIM DS TABLET*) 1 Each Tablet 1 TAB ORAL TWICE A DAY for 7 Days, #14 TAB Prov: Sasha Perdomo 05/02/20 Cephalexin* (KEFLEX*) 500 Mg Capsule 500 MG ORAL EVERY 12 HOURS for 7 Days, #14 CAP 0 Refills Prov: Sasha Perdomo 05/02/20 Referrals: NON PHYSICIAN (PCP) Sasha Perdomo May 02, 2020 19:05
[2020-05-02] MEDS ORDERED: CEPHALEXIN500 MG ORAL (19:18)
[2020-05-02] MEDS ORDERED: BACTRIM DS TAB1 EAC1 ORAL (19:18)
--- NOTE | 2020-05-02 19:30 | NUR ---
ED Nurse Note: Sling applied to patient L arm.
[2020-05-02 19:35] VITALS: BP 105/85
--- NOTE | 2020-05-02 19:35 | NUR ---
ER DISCHARGE NOTE: Patient is cleared to be discharged per ERMD, pt is aox4, on room air, with stable vital signs besides elevated HR, ERPA aware. pt was given dc and prescription instructions, pt was able to verbalize understanding, pt id band removed. pt is able to ambulate with steady gait. pt took all belongings.
[2020-05-02] MEDS ORDERED: Morphine Sulfate 4mg/ml Inj (IV USE ONLY) IVP ONE (19:45)
== END 2020-05-02 19:35 | disposition home or self-care (01) ==
LOC: EMR 18:45
DX: L03.114 Cellulitis of left upper limb (principal); F19.90 Other psychoactive substance use, unspecified, uncomplicated; Z86.19 Personal history of other infectious and parasitic diseases; R00.0 Tachycardia, unspecified
CPT/HCPCS: 99282